=== PATIENT | female | born 1990 | race Caucasian/White ===

== ENCOUNTER → 2018-03-11 11:48 | Outpatient (CLI) | payer OTHER, SELFPAY ==
--- NOTE | 2018-03-11 | DI.MRI.S_ITS ---
PROCEDURE: MR KNEE RT WO CON INDICATIONS: PAIN IN RIGHT KNEE TECHNIQUE: Noncontrast sagittal PD fast spin echo and T2 fast spin echo with fat saturation, sagittal 3-D FLASH with fat saturation; coronal T1 spin echo and PD fast spin echo with fat saturation, and axial PD fast spin echo with fat saturation through the knee. COMPARISON: None. FINDINGS: Image quality: Excellent. Menisci: The medial meniscal tear seen involving the posterior horn and body extending to the inferior articular surface. Lateral meniscus appears intact Cruciate ligaments: The anterior cruciate ligament is not well visualized and ruptured although this is probably a subacute or chronic finding. The posterior cruciate ligament appears intact. Medial structures: The medial collateral ligament appears intact. The posterior oblique ligament, semimembranosus tendon insertions, oblique popliteal ligament, and meniscocapsular junction appear intact. Visualized portions of the pes anserinus tendons appear normal. No abnormal bursal fluid. Lateral structures: The lateral collateral ligament, long and short heads of the biceps femoris tendon appear intact. The popliteus tendon appears normal; the popliteofibular ligament appears intact. The posterosuperior and anteroinferior popliteomeniscal fascicles appear intact. The arcuate and fabellofibular ligaments appear intact, on either side of the lateral inferior geniculate artery. Iliotibial band appears normal. Anterior structures: The quadriceps and patellar tendons appear intact. Patellar alignment is normal. No femoral trochlear dysplasia or ventral trochlear prominence. No edema in the infrapatellar fat pad. Bones and cartilage: No fractures. Mild or potentially resolving marrow contusion involving the lateral femoral condyle. Within the medial and lateral compartments the articular cartilage appears intact. Within the patellofemoral compartment, low -grade surface fraying of the patellar cartilage overlying the lateral facet Joint space: There is physiologic knee joint fluid. No Wolf's cyst. IMPRESSION: Rupture of the anterior cruciate ligament although this finding is probably subacute or chronic. Please correlate clinically to exam findings. Medial meniscal tear involving posterior horn and body. Mild patellofemoral chondromalacia. Mild marrow edema involving the midlateral femoral condyle which could represent mild or subacute/resolving marrow contusion. Dictated by: Edson Valle M.D. on 03/11/2018 at 12:43 Approved by: Edson Valle M.D. on 03/11/2018 at 12:56
== END ==
PROVIDERS: Visit Provider General Practice
DX: M25.561 Pain in right knee (principal); S83.511A Sprain of anterior cruciate ligament of right knee, initial encounter; S83.241A Other tear of medial meniscus, current injury, right knee, initial encounter; M22.41 Chondromalacia patellae, right knee; R60.0 Localized edema
CPT/HCPCS: 73721

== ENCOUNTER 2018-05-23 06:09 | Day surgery (SDC) | payer OTHER, SELFPAY ==
[2018-05-17 08:44] VITALS: BMI 24.6
[2018-05-23] VITALS (8 sets, daily range): BP systolic 95–132; BP diastolic 57–81; PULSE 67–115; RESP 10–16; TEMP 36.3–36.8; O2SAT 97–100; BMI 24.5
[2018-05-23] MEDS: LACTATED RINGERS 1,000 ML 42 ML IV ×2 (07:14→09:35)
--- NOTE | 2018-05-23 07:34 | PM.PREOP ---
Pre-operative Note Interval Note Pre-op Check: Yes History & Physical Reviewed by Physician and Yes Exam Performed Changes: No
[2018-05-23] MEDS: CEFAZOLIN 2 GM/100 ML FROZ.PIGGY IV (08:00)
--- NOTE | 2018-05-23 09:06 | SUR.OPER ---
Supine on padded OR bed, head on pillow, arms secured on padded arm boards at <90 degrees abduction, legs uncrossed, safety belt at abdomen, tape over blanket over left lower leg, right leg controlled by surgeon, lateral leg brace at right thigh.
[2018-05-23] MEDS: BUPIVACAINE 0.25% (PF) VIAL 30 ML INJ (09:24)
[2018-05-23] MEDS: SODIUM CHLORIDE IRRIG SOLUTION 1,000 ML, BACITRACIN 50,000 UNIT IRR (09:26)
[2018-05-23] MEDS: SODIUM CHLORIDE IRRIG SOLUTION 3,000 ML, EPINEPHrine 1 MG IRR (09:29)
[2018-05-23] MEDS: SODIUM CHLORIDE IRRIG SOLUTION 3,000 ML 3000 ML IRR (09:56)
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
[2018-05-23] MEDS: fentaNYL 100 MCG/2 ML INJ 25 MCG IV ×4 (11:10→11:25)
[2018-05-23] MEDS: OXYCODONE/ACETAMINOPHEN 5/325 TABLET 1 TAB PO ×2 (11:11→11:35)
== END 2018-05-23 12:21 | disposition home or self-care (01) ==
PROVIDERS: PCP Radiology Diagnostic Radiology; Visit Provider Orthopaedic Surgery
PROC: (CPT 29888; principal; 2018-05-23 07:45)
DX: M23.611 Other spontaneous disruption of anterior cruciate ligament of right knee (principal); S83.211A Bucket-handle tear of medial meniscus, current injury, right knee, initial encounter; M22.41 Chondromalacia patellae, right knee; Y93.74 Activity, frisbee
CPT/HCPCS: 29888; 29882; J0171; J0690; J2250; J3010

== ENCOUNTER 2018-09-04 09:24 | Emergency (ER) | payer OTHER, SELFPAY ==
[2018-09-04 09:28] VITALS: BP 130/83; PULSE 68; RESP 14; TEMP 36.3; O2SAT 100; BMI 24.7
[2018-09-04] MEDS: IBUPROFEN 400 MG TABLET 800 MG PO (09:40)
--- NOTE | 2018-09-04 10:04 | ED_ITS ---
HPI - Neck Pain/Injury General Chief Complaint: Neck Pain/Injury Stated Complaint: NECK PAIN Time Seen by Provider: 09/04/18 09:40 Source: patient Mode of arrival: ambulatory Limitations: no limitations History of Present Illness HPI Narrative: Patient complains of neck spasm and pain for the last few days. She denies distinct injury but states that she does have children who sleeps in the same bed as her new thinks she may have slept wrong. She states she has a history of neck spasms occasionally but no history of any major injury. She does not have any chronic neck problems. 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 She states she is sometimes getting a shooting pain into her scapula, but has not had any paresthesias or electrical sensations down her arm. She rates her pain a 4/10. No other complaints at this time. Related Data Home Medications Medication Instructions Recorded Confirmed ibuprofen 800 mg PO TID PRN 05/17/18 09/04/18 multivitamin 1 tab PO DAILY 09/04/18 09/04/18 Previous Rx's Medication Instructions Recorded cyclobenzaprine 10 mg PO TID PRN #10 tab 09/04/18 Allergies Allergy/AdvReac Type Severity Reaction Status Date / Time No Known Drug Allergies Allergy Verified 09/04/18 09:32 Review of Systems Constitutional Denies chills, Denies fever(s), Denies lethargy and Denies weakness Eyes Denies change in vision, Denies eye discharge, Denies irritation and Denies loss of vision ENT Ears, Nose, Mouth, and Throat: Denies change in voice, Reports neck pain and Denies sore throat Cardiovascular Denies chest pain, Denies irregular heart rhythm, Denies lightheadedness, Denies palpitations, Denies dyspnea, Denies dyspnea on exertion and Denies orthopnea Respiratory Denies cough, Denies dyspnea, Denies dyspnea on exertion and Denies wheezing Gastrointestinal Gastrointestinal: Denies abdominal pain, Denies change in bowel habits, Denies diarrhea, Denies nausea and Denies vomiting Genitourinary Denies hematuria, Denies flank pain, Denies urinary incontinence and Denies urinary urgency Musculoskeletal Reports neck pain Integumentary/Breasts Denies pruritus, Denies erythema, Denies rash and Denies wounds Neurologic Denies confusion, Denies loss of vision and Denies weakness Psychiatric Denies anxiety, Denies confusion, Denies depression, Denies homicidal ideation and Denies suicidal ideation Endocrine Denies palpitations Hematologic/Lymphatic Denies easy bruising Allergic/Immunologic Denies wheezing [facility] Medical History Impaired vision (Acute) Tears of meniscus and anterior cruciate ligament of right knee (Acute) Surgical History History of foot surgery (Acute) History of photorefractive keratectomy (PRK) (Acute) History of tonsillectomy (Acute) Social History household members: spouse and children Smoking Status: Former smoker alcohol intake: current Exam Initial Vital Signs Initial Vital Signs: Vital Signs Temperature 97.3 F L 09/04/18 09:28 Pulse Rate 68 09/04/18 09:28 Respiratory Rate 14 09/04/18 09:28 Blood Pressure 130/83 09/04/18 09:28 Pulse Oximetry 100 09/04/18 09:28 Const General: cooperative and well developed Nutritional Appearance: well nourished Orientation: alert, awake, oriented x3 and not confused [facility] Head: normocephalic and atraumatic Ears: external ears normal and TM's normal bilaterally Nose: external nose normal and No nasal discharge Face and sinus: sinuses nontender, face symmetric, no sinus tenderness and No dry mucous membranes Mouth: oral mucosae normal and moist mucous membranes Teeth and gingiva: dentition normal Throat: tonsils normal and uvula midline Eyes General: appearance normal, both eyes and all related structures Eyelids: eyelids normal Conjunctivae: conjunctivae normal Sclera: sclerae normal Pupils: PERRL EOM: EOM intact bilaterally Neck Neck: normal visual inspection, trachea midline, No lymphadenopathy and No midline deformity Lymphatic: No lymphadenopathy Other: Patient has tenderness over her left trapezius distribution. No tenderness or step-off at any level of her spine. Patient has limited range of motion with rotation and flexion, secondary to pain. Tenderness terminates at the insertion and origin superiorly and inferiorly of the trapezius muscle distribution. Chest Chest: normal inspection of the chest Resp Effort & Inspection: normal respiratory effort, able to speak in complete sentences, no respiratory distress and no use of accessory muscles Auscultation: clear to auscultation bilaterally, no rales, no rhonchi and no wheezes Cardio Rate: regular rate Rhythm: regular rhythm Heart Sounds: no click, no gallops, no murmurs and no rubs Pulses: normal peripheral pulses Back/Spine/Pelvis Back: No CVA tenderness Cervical Spine: cervical ROM normal and No pain with cervical ROM Thoracic/Lumbar Spine: thoracic and lumbar spine normal to inspection Skin General: no rashes or lesions noted, No jaundice and No petechiae Neuro General: alert, oriented x3, gait normal and no focal motor deficits Speech: speech normal Extrem General: full ROM, no clubbing, cyanosis or edema, no pedal edema and no calf tenderness Psych Appearance: well kempt Mental Status: mental status grossly normal Attitude: cooperative Thought Content: normal and suicidality Judgment: judgment good Course Course Narrative: Patient was treated symptomatically in the emergency department with Flexeril. She was given a work note for today. We have discussed symptomatic management at home, as well as the usual indications for return. Orders Ordered: Discontinued Medications Cyclobenzaprine HCl (Flexeril) 10 mg PO NOW ONE Stop: 09/04/18 10:04 Last Admin: 09/04/18 10:09 Dose: 10 mg Ibuprofen (Advil) 800 mg PO NOW ONE Stop: 09/04/18 09:39 Last Admin: 09/04/18 09:40 Dose: 800 mg Vital Signs - 8 hr 09/04/18 09:28 Temperature 97.3 F L Pulse Rate 68 Respiratory Rate 14 Blood Pressure 130/83 Pulse Oximetry 100 MDM - Neck Pain/Injury Medical Records Attestation: I reviewed the patient's medical records. Discharge Plan Departure Patient Disposition: Home Clinical Impression: Torticollis Discharge Date/Time: 09/04/18 10:28 Interventions: ED Discharge Assessment Last Done: 09/04/18 10:28 Instructions: DI for Torticollis Prescriptions: New cyclobenzaprine 10 mg tablet 10 mg PO TID PRN (Reason: muscle spasm) Qty: 10 RF: 0 No Action ibuprofen 800 mg Tablet 800 mg PO TID PRN (Reason: Pain (Scale Score 1-3)) RF: 0 multivitamin Tablet 1 tab PO DAILY RF: 0 Referrals: Iraj Marie [Primary Care Provider] - Stand Alone Forms: Work Release Note
[2018-09-04] MEDS: CYCLOBENZAPRINE 10 MG TABLET PO (10:09)
[2018-09-04 10:28] VITALS: BP 129/74; PULSE 72; RESP 18; O2SAT 99
== END 2018-09-04 10:28 | disposition home or self-care (01) ==
PROVIDERS: Emergency Provider Emergency Medicine; PCP Radiology Diagnostic Radiology
DX: M43.6 Torticollis (principal)
CPT/HCPCS: 99282; 99283